=== PATIENT | male | born 1940 | race Caucasian/White ===

== ENCOUNTER 2018-04-24 10:34 | Emergency (ER) | payer MEDICARE ==
[~2018-04-24] VITALS: Ht 170.2 cm; Wt 81.8 kg
[2018-04-24 10:37] VITALS: Ht 170.2 cm; Wt 81.8 kg
[2018-04-24] MEDS ORDERED: ULORIC40 MG PO (10:40)
[2018-04-24] MEDS ORDERED: ZESTRIL20 MG PO (10:42)
[2018-04-24] MEDS ORDERED: MAXZIDE 75/501 TAB PO (10:42)
[2018-04-24] MEDS ORDERED: OMEPRAZOLE20 M1 PO (10:43)
[2018-04-24] MEDS ORDERED: TOPROL XL100 MG PO (10:43)
[2018-04-24 11:30] LABS: ALBUMIN 3.6 g/dL (3.4-5.0); ALKALINE PHOSPHATASE 85 U/L (46-116); ALT (SGPT) 22 U/L (10-68); BILIRUBIN - TOTAL 0.32 mg/dL (0.2-1.3); CALC OSMOLALITY 280 mosm/kg (275-300); CALCIUM 8.5 mg/dL (8.5-10.1); CARBON DIOXIDE 27.7 mmol/L (21.0-32.0); CHLORIDE - SERUM 101 mmol/L (98-107); CREATININE - SERUM 1.6 mg/dL (0.6-1.3); GLUCOSE 115 mg/dL (74-106); PROTEIN - SERUM 7.7 g/dL (6.4-8.2); SODIUM 138 mmol/L (136-145); UREA NITROGEN 24 mg/dL (7-18); eGFR NON AFRICAN AMERICAN 45 mL/min (90-120)
[2018-04-24 11:34] LABS: BASOPHILS 0.3 % (0-2); EOSINOPHILS 2.2 % (0-7); HEMATOCRIT 45.5 % (42.0-54.0); HEMOGLOBIN 16.1 g/dL (13.5-17.5); IMMATURE GRANULOCYTES 0.3 % (0-5); LYMPHOCYTES 28.7 % (15-50); MCH 32.6 pg (26.0-34.0); MCHC 35.4 g/dL (31.0-37.0); MCV 92.1 fL (80.0-100.0); MEAN PLATELET VOLUME 10.9 fL (7.4-10.4); MONOCYTES 8.1 % (2-11); NEUTROPHILS 60.4 % (40-80); PLATELET COUNT 216 10x3/uL (130-400); RBC 4.94 10x6/uL (4.20-6.10); RDW 12.6 % (11.5-14.5); WBC 9.7 10x3/uL (4.8-10.8)
[2018-04-24 11:43] LABS: CKMB 1.3 U/L (0.0-3.6); TROPONIN-I < 0.017 ng/mL (0.000-0.060)
[2018-04-24 14:39] VITALS: BP 167/77
== END 2018-04-24 15:32 | disposition other institution (70) ==
LOC: D.ER 10:34
PROVIDERS: Family Medicine
DX: R07.9 Chest pain, unspecified (principal); R06.09 Other forms of dyspnea; I10 Essential (primary) hypertension; K21.9 Gastro-esophageal reflux disease without esophagitis

== ENCOUNTER 2018-06-09 10:45 | Emergency (ER) | payer MEDICARE ==
[2018-04-24 10:37] VITALS: BMI 28.2
[~2018-06-09 10:45] MED LIST: MAXZIDE 75/501 TAB PO; OMEPRAZOLE20 M1 PO; TOPROL XL100 MG PO; ULORIC40 MG PO; ZESTRIL20 MG PO
== END 2018-06-09 11:30 | disposition left against medical advice (07) ==
LOC: D.ER 10:45
DX: Z02.9 Encounter for administrative examinations, unspecified (principal)

== ENCOUNTER 2021-03-04 13:22 | Emergency (ER) | payer OTHER ==
[~2021-03-04] VITALS: Ht 170.2 cm; Wt 95.5 kg
[2021-03-04 13:26] VITALS: Ht 170.2 cm; Wt 95.5 kg
[2021-03-04 13:50] LABS: BASOPHILS 0.9 % (0-2); EOSINOPHILS 1.8 % (0-7); HEMATOCRIT 39.4 % (42.0-54.0); HEMOGLOBIN 13.2 g/dL (13.5-17.5); LYMPHOCYTES 29.6 % (15-50); MCH 30.2 pg (26.0-34.0); MCHC 33.4 g/dL (31.0-37.0); MCV 90.5 fL (80.0-100.0); MEAN PLATELET VOLUME 8.9 fL (7.4-10.4); MONOCYTES 10.1 % (2-11); NEUTROPHILS 57.6 % (40-80); RBC 4.36 10x6/uL (4.20-6.10); RDW 13.8 % (11.5-14.5); WBC 10.4 10x3/uL (4.8-10.8)
[2021-03-04 13:59] LABS: CALC OSMOLALITY 282 mosm/kg (275-300); CALCIUM 9.3 mg/dL (8.5-10.1); CARBON DIOXIDE 26.6 mmol/L (21.0-32.0); CHLORIDE - SERUM 103 mmol/L (98-107); CREATININE - SERUM 1.7 mg/dL (0.6-1.3); GLUCOSE 99 mg/dL (74-106); POTASSIUM - SERUM 3.9 mmol/L (3.5-5.1); SODIUM 140 mmol/L (136-145); UREA NITROGEN 23 mg/dL (7-18); eGFR NON AFRICAN AMERICAN 41 mL/min (90-120)
[2021-03-04 14:02] LABS: APTT 28.3 SECONDS (22.8-39.4); INR 1.08 (0.85-1.17)
[2021-03-04 14:03] LABS: PLATELET COUNT 272 10x3/uL (130-400)
[2021-03-04 14:16] LABS: ALBUMIN 3.8 g/dL (3.4-5.0); ALKALINE PHOSPHATASE 82 U/L (30-120); ALT (SGPT) 22 U/L (10-68); BILIRUBIN - TOTAL 0.39 mg/dL (0.2-1.3); CKMB 1.9 U/L (0.0-3.6); CREATINE KINASE 270 UL (21-232); PROTEIN - SERUM 8.1 g/dL (6.4-8.2); TROPONIN-I < 0.017 ng/mL (0.000-0.060)
[2021-03-04 20:48] VITALS: BP 151/66
== END 2021-03-04 20:48 | disposition other institution (70) ==
LOC: D.ER 13:22
PROVIDERS: Family Medicine
DX: R55 Syncope and collapse (principal); Z91.19 Patient's noncompliance with other medical treatment and regimen; I10 Essential (primary) hypertension; K21.9 Gastro-esophageal reflux disease without esophagitis